=== PATIENT | female | born 1990 | race Caucasian/White ===

== ENCOUNTER 2018-01-13 11:56 | Emergency (ER) | payer OTHER ==
[~2018-01-13] VITALS: Ht 170.2 cm; Wt 70.3 kg
[~2018-01-13 11:56] MED LIST: AMOXICILLIN 50500 MG PO; AUGMENTIN 875875 MG PO; AURALGAN OTIC S14 ML OT; AZITHROMYCIN 2250 MG PO; BETAMETHASONE D50 G3 TP; CIPROFLOXACIN500 M1 PO; CORTISPORIN OTI10 ML OTIC; FLEXERIL PO; HYDROCODON-ACE1 EACH; IBUPROFEN 800800 M1 PO; KEFLEX500 MG PO; MEDROLDOSEPACK PO; NEOSPORIN28 GM TP; NOHOMEMEDICATIONS; NORCO 5-325 TA1 EACH PO; PHENERGAN 25 MG25 M1 PO; PROGESTERO50 MG/1 M3 IM; TESSALON200 MG PO; TRINATE TABLET1 TAB PO; TRIPLE ANTIBIOT28 GM TP; ULTRAM 50MG TAB50 MG PO; ZOFRAN ODT4 MG PO; ZOFRAN4 MG PO
[2018-01-13] MEDS ORDERED: GARCINIA CAMBO1 EACH PO (12:04)
[2018-01-13 12:28] LABS: ABSOLUTE EOSINOPHILS 0.1 thou/uL (0.0-0.7); ABSOLUTE LYMPHOCYTES 2.7 thou/uL (0.8-5.3); ABSOLUTE MONOCYTES 0.6 thou/uL (0.0-1.2); ABSOLUTE NEUTROPHILS 3.7 thou/uL (1.6-8.1); BASOPHILS 0.6 %; EOSINOPHILS 1.8 %; HEMATOCRIT 42.4 % (37.0-47.0); HEMOGLOBIN 14.4 gm/dL (12.0-15.0); LYMPHOCYTES 37.7 %; MCH 29.5 pg (26.0-34.0); MCV 86.5 fL (80.0-100.0); MONOCYTES 8.6 %; MPV 7.9 fl. (7.2-11.1); NUCLEATED RBCS 0 /100WBC; PLATELET COUNT* 335 thou/uL (150-400); POLYS 51.3 %; RDW-CV 13.1 % (10.5-14.5); WBC 7.2 thou/uL (4.0-11.0)
[2018-01-13 12:41] LABS: ANION GAP 8 mmol/L (7-16); BUN 13 mg/dL (7-18); CALCIUM 8.9 mg/dL (8.5-10.1); CHLORIDE 107 mmol/L (98-107); CO2 25 mmol/L (21-32); CREATININE 0.6 mg/dL (0.6-1.3); GLUCOSE 103 mg/dL (70-99); POTASSIUM 3.8 mmol/L (3.5-5.1); SODIUM 140 mmol/L (136-145)
[2018-01-13 12:43] LABS: APTT 26.8 Seconds (25.0-31.3); INR 1.1; PROTIME 10.3 Seconds (9.20-11.50)
[2018-01-13 12:48] LABS: ALBUMIN 3.9 g/dL (3.4-5.0); ALKALINE PHOSPHATASE 52 U/L (46-116); LIPASE 98 U/L (73-393); SGOT 14 U/L (15-37); SGPT 23 U/L (30-65); TOTAL BILIRUBIN 0.9 mg/dL (<0.1-1.0); TROPONIN-I LEVEL <0.06 ng/mL (<0.06)
[2018-01-13] MEDS ORDERED: ZANTAC 150MG T150 MG PO ×2 (13:57→14:06)
[2018-01-13 14:21] VITALS: BP 125/74
--- NOTE | 2018-01-14 13:00 | EKG ---
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
== END 2018-01-13 14:22 | disposition home or self-care (01) ==
LOC: M.ERS 11:56
PROVIDERS: Nurse Practitioner Family
DX: R07.89 Other chest pain (principal); F32.9 Major depressive disorder, single episode, unspecified; G89.29 Other chronic pain; M54.9 Dorsalgia, unspecified; F17.210 Nicotine dependence, cigarettes, uncomplicated

== ENCOUNTER 2019-11-02 11:25 | Emergency (ER) | payer OTHER ==
[~2019-11-02] VITALS: Ht 167.6 cm; Wt 63.5 kg
[~2019-11-02 11:25] MED LIST changes: +GARCINIA CAMBO1 EACH PO; +ZANTAC 150MG T150 MG PO
[2019-11-02] MEDS ORDERED: PSYCH (11:33)
[2019-11-02] MEDS ORDERED: VISTARIL50 MG PO (11:33)
[2019-11-02 11:49] LABS: URINE BILIRUBIN NEGATIVE (Negative); URINE BLOOD 1+ (Negative); URINE CLARITY CLEAR; URINE COLOR YELLOW; URINE GLUCOSE-RANDOM NEGATIVE (Negative); URINE KETONES NEGATIVE (Negative); URINE LEUKOCYTES-REFLEX NEGATIVE (Negative); URINE NITRITE-REFLEX NEGATIVE (Negative); URINE PROTEIN NEGATIVE (Negative); URINE SPECIFIC GRAVITY >= 1.030 (1.005-1.030); URINE UROBILINOGEN 0.2 E.U./dl (0.2-1.0)
[2019-11-02 11:53] LABS: BACTERIA-REFLEX 1-9 Few /HPF (None Seen); HYALINE CASTS 0-3 Few /LPF (None Seen); MUCUS 0-3 Light strn/LPF (None Seen); SQUAMOUS 0-3 Few /LPF (0-3); URINE RBC 3-10 Few /HPF (0-2); URINE WBC-REFLEX 0-5 Rare /HPF (0-5)
[2019-11-02 11:54] LABS: CRYSTALS None Seen /LPF (None Seen)
[2019-11-02 11:56] LABS: AMP/METHAMP Negative (Negative); BARBITURATES Negative (Negative); BENZODIAZEPINES Negative (Negative); COCAINE Negative (Negative); METHADONE Negative (Negative); OPIATES Negative (Negative); PCP Negative (Negative); THC POSITIVE (Negative)
[2019-11-02 12:34] LABS: HEMATOCRIT 41.4 % (37.0-47.0); MCH 30.7 pg (26.0-34.0); MCHC 33.8 g/dL (28.0-37.0); MCV 90.9 fL (80.0-100.0); MPV 7.5 fl. (7.2-11.1); NUCLEATED RBCS 0 /100WBC; PLATELET COUNT* 351 thou/uL (150-400); RBC 4.55 mil/uL (4.20-5.00); RDW-CV 13.6 % (10.5-14.5); WBC 13.1 thou/uL (4.0-11.0)
[2019-11-02 12:44] LABS: CALCIUM 7.8 mg/dL (8.5-10.1); CREATININE 0.9 mg/dL (0.6-1.3); POTASSIUM 3.8 mmol/L (3.5-5.1)
[2019-11-02 12:48] LABS: ALBUMIN 3.5 g/dL (3.4-5.0); TOTAL BILIRUBIN 0.4 mg/dL (<0.1-1.0); TOTAL PROTEIN 6.6 g/dL (6.4-8.2)
[2019-11-02 13:20] LABS: ABSOLUTE LYMPHOCYTES 2.8 thou/uL (0.8-5.3); ABSOLUTE MONOCYTES 0.9 thou/uL (0.0-1.2); ABSOLUTE NEUTROPHILS 9.4 thou/uL (1.6-8.1); ANISOCYTOSIS 1+; PLATELET ESTIMATE ADEQUATE; POIKILOCYTOSIS 1+
[2019-11-02] MEDS ORDERED: NORCO 5-325 TA1 EAC1 PO (14:47)
[2019-11-02 15:00] VITALS: BP 135/66
== END 2019-11-02 15:02 | disposition home or self-care (01) ==
LOC: M.ERS 11:25
PROVIDERS: Physician Assistant
DX: R10.31 Right lower quadrant pain (principal); F17.210 Nicotine dependence, cigarettes, uncomplicated; Z79.899 Other long term (current) drug therapy

== ENCOUNTER 2020-04-12 11:59 | Emergency (ER) | payer OTHER ==
[~2020-04-12] VITALS: Ht 167.6 cm; Wt 68.0 kg
[~2020-04-12 11:59] MED LIST changes: +NORCO 5-325 TA1 EAC1 PO; +PSYCH; +VISTARIL50 MG PO
[2020-04-12 14:16] VITALS: BP 160/82
== END 2020-04-12 14:10 | disposition home or self-care (01) ==
LOC: M.ERS 11:59
DX: S60.222A Contusion of left hand, initial encounter (principal); S20.221A Contusion of right back wall of thorax, initial encounter; S50.02XA Contusion of left elbow, initial encounter; M25.512 Pain in left shoulder; F17.210 Nicotine dependence, cigarettes, uncomplicated; Z98.51 Tubal ligation status; Y08.89XA Assault by other specified means, initial encounter; Y93.89 Activity, other specified; Y92.89 Other specified places as the place of occurrence of the external cause; Y99.8 Other external cause status

== ENCOUNTER 2020-06-18 07:41 | Emergency (ER) | payer OTHER ==
[~2020-06-18] VITALS: Ht 167.6 cm; Wt 68.0 kg
[2020-06-18 08:20] LABS: ABSOLUTE EOSINOPHILS 0.2 thou/uL (0.0-0.7); ABSOLUTE LYMPHOCYTES 2.3 thou/uL (0.8-5.3); ABSOLUTE MONOCYTES 0.8 thou/uL (0.0-1.2); ABSOLUTE NEUTROPHILS 6.4 thou/uL (1.6-8.1); BASOPHILS 0.4 %; EOSINOPHILS 1.8 %; HEMOGLOBIN 16.2 gm/dL (12.0-15.0); LYMPHOCYTES 23.6 %; MCH 31.4 pg (26.0-34.0); MCHC 35.2 g/dL (28.0-37.0); MCV 89.1 fL (80.0-100.0); MONOCYTES 8.1 %; MPV 7.6 fl. (7.2-11.1); NUCLEATED RBCS 0 /100WBC; PLATELET COUNT* 378 thou/uL (150-400); POLYS 66.1 %; RBC 5.17 mil/uL (4.20-5.00); WBC 9.6 thou/uL (4.0-11.0)
[2020-06-18 08:25] LABS: CALCIUM 8.6 mg/dL (8.5-10.1); CREATININE 0.7 mg/dL (0.6-1.3); POTASSIUM 3.7 mmol/L (3.5-5.1)
[2020-06-18 08:28] LABS: URINE BILIRUBIN NEGATIVE (Negative); URINE BLOOD 2+ (Negative); URINE CLARITY CLEAR; URINE COLOR YELLOW; URINE GLUCOSE-RANDOM NEGATIVE (Negative); URINE KETONES NEGATIVE (Negative); URINE LEUKOCYTES-REFLEX NEGATIVE (Negative); URINE NITRITE-REFLEX NEGATIVE (Negative); URINE PROTEIN NEGATIVE (Negative); URINE SPECIFIC GRAVITY >= 1.030 (1.005-1.030); URINE UROBILINOGEN 0.2 E.U./dl (0.2-1.0)
[2020-06-18 08:30] LABS: ALBUMIN 4.1 g/dL (3.4-5.0); MAGNESIUM 1.9 mg/dL (1.8-2.4); TOTAL BILIRUBIN 1.2 mg/dL (<0.1-1.0); TOTAL PROTEIN 7.7 g/dL (6.4-8.2)
[2020-06-18 08:37] LABS: BACTERIA-REFLEX 1-9 Few /HPF (None Seen); CASTS None Seen /LPF (None Seen); CRYSTALS None Seen /LPF (None Seen); SQUAMOUS 0-3 Few /LPF (0-3); URINE RBC 0-2 Rare /HPF (0-2); URINE WBC-REFLEX 0-5 Rare /HPF (0-5)
[2020-06-18] MEDS ORDERED: PREVACID30 MG PO (10:24)
[2020-06-18] MEDS ORDERED: CARAFATE 1 GM TA1 GM PO (10:24)
[2020-06-18 10:43] VITALS: BP 107/43
== END 2020-06-18 10:44 | disposition home or self-care (01) ==
LOC: M.ERS 07:41
PROVIDERS: Personal Emergency Response Attendant
DX: N83.201 Unspecified ovarian cyst, right side (principal); N28.1 Cyst of kidney, acquired; K29.00 Acute gastritis without bleeding; R11.2 Nausea with vomiting, unspecified; F17.210 Nicotine dependence, cigarettes, uncomplicated; G89.29 Other chronic pain

== ENCOUNTER 2021-09-10 09:56 | Emergency (ER) | payer OTHER ==
[~2021-09-10] VITALS: Ht 167.6 cm; Wt 63.5 kg
[~2021-09-10 09:56] MED LIST changes: +CARAFATE 1 GM TA1 GM PO; +PREVACID30 MG PO
[2021-09-10 10:37] LABS: URINE BILIRUBIN NEGATIVE (Negative); URINE BLOOD 3+ (Negative); URINE CLARITY CLEAR; URINE COLOR YELLOW; URINE GLUCOSE-RANDOM NEGATIVE (Negative); URINE KETONES NEGATIVE (Negative); URINE LEUKOCYTES-REFLEX NEGATIVE (Negative); URINE NITRITE-REFLEX NEGATIVE (Negative); URINE PROTEIN NEGATIVE (Negative); URINE SPECIFIC GRAVITY >= 1.030 (1.005-1.030); URINE UROBILINOGEN 0.2 E.U./dl (0.2-1.0)
[2021-09-10 10:49] LABS: SQUAMOUS >10 Many /LPF (0-3)
[2021-09-10 10:50] LABS: URINE RBC >20 Many /HPF (0-2); URINE WBC-REFLEX None Seen /HPF (0-5)
[2021-09-10 10:51] LABS: CASTS None Seen /LPF (None Seen); CRYSTALS None Seen /LPF (None Seen); MUCUS 4-6 Moderate strn/LPF (None Seen)
[2021-09-10] MEDS ORDERED: NAPROSYN500 MG PO (11:14)
[2021-09-10] MEDS ORDERED: MEDROLDOSEPACK PO (11:14)
[2021-09-10] MEDS ORDERED: APAP W/CODEINE1 TA2 PO (11:14)
[2021-09-10 11:25] VITALS: BP 138/88
== END 2021-09-10 11:25 | disposition home or self-care (01) ==
LOC: M.ERS 09:56
PROVIDERS: Physician Assistant
DX: M54.59 Other low back pain (principal); F32.9 Major depressive disorder, single episode, unspecified; F17.210 Nicotine dependence, cigarettes, uncomplicated; R30.0 Dysuria; Z98.51 Tubal ligation status